=== PATIENT | male | born 1935 | race Caucasian/White ===

== ENCOUNTER 2021-06-22 19:00 | Emergency (ER) | payer BC, MEDICARE ==
[~2021-06-22] VITALS: Ht 170.2 cm; Wt 67.2 kg
--- NOTE | 2021-06-22 19:26 | PHYS DOC ---
Past History Past Surgical History: Other Additional Past Surgical Histo: kidney removal right General Adult EDM: Chief Complaint: ABDOMINAL PAIN HPI: HPI: Patient is a 86-year-old male coming in for left inguinal hernia that he cannot get reduced. Patient states he has had the hernia repaired about 5 years ago and that has since reopened. He states normally can reduce it and it soft. Patient states he been working and doing some lifting but also vomited once this morning. Last bowel movement was this morning but he states he is recently also been constipated. Patient is a history of diabetes, denies any hypertension, h eart disease, or blood thinner use. Review of Systems: Review of Systems: All other systems within normal limits except for as noted in the HPI Allergies: Allergies: Allergies Coded Allergies Type Severity Reaction Last Updated Verified penicillin G Allergy Unknown 09/30/15 Yes Physical Exam: PE: Constitutional: Well developed, well nourished, no acute distress, non-toxic appearance. [] HENT: Normocephalic, atraumatic, bilateral external ears normal, nose normal. [] Eyes: PERRLA, conjunctiva normal, no discharge. [] Neck: No rigidity, supple, no stridor. [] Cardiovascular: Regular rate and rhythm, brisk cap refill [] Lungs & Thorax: Non labored symmetric respirations, no tachypnea or respiratory distress [] Abdomen: Soft, nondistended, firm left inguinal hernia. Skin: Warm, dry, no erythema, no rash. [] Back: Unremarkable Extremities: No deformities, range of motion grossly intact, no lower extremity edema [] Neurologic: Alert and oriented X 3, no focal deficits noted. [] Psychologic: Affect normal, judgement normal, mood normal. [] Current Patient Data: Vital Signs: Vital Signs Date Time Temp Pulse Resp B/P (MAP) Pulse Ox O2 Delivery O2 Flow Rate FiO2 06/22/21 19:03 66 19 100 Room Air EKG: EKG: [] Radiology/Procedures: Radiology/Procedures: [address] [address] IMAGING REPORT Signed PATIENT: HOLLY EVANS ACCOUNT: [id number] : 1935 LOCATION: ER AGE: 86 SEX: M EXAM STATUS: REG ER ORD. PHYSICIAN: CASTILLO CHRISTY MD REASON: OMNI 300,75ML IV. Lt inguinal hernia PROCEDURE: CT ABD PELV W/ IV CONTRST ONLY CT OF THE ABDOMEN AND PELVIS WITH IV CONTRAST. History: Reason: OMNI 300,75ML IV. Lt inguinal hernia / Spl. Instructions: / History: Comparison:September 30, 2015. Procedure: Contiguous axial images of the abdomen and pelvis were performed after the administration of 75 cc of Omnipaque 300 IV contrast. Oral contrast: No. Findings: There is a moderate hiatal hernia. There is a small stone in the gallbladder but no wall thickening or surrounding fluid. The appendix is normal. There is a left inguinal canal hernia to multiple loops of small bowel and is multiple dilated loops of small bowel but does appear to be a few transition points including at the inguinal canal on the left. There is also mild twisting of the mesentery. There is some air and stool in the small bowel i.e. a small bowel feces sign. Liver: Unremarkable Spleen: Unremarkable Pancreas: Unremarkable Adrenal Glands: Unremarkable Kidneys: Prior right nephrectomy There is no mass or lymphadenopathy. There is no free air. There is no free fluid. The urinary bladder appears normal. Impression: 1. High-grade small bowel obstruction likely due to the small bowel-containing inguinal canal hernia on the left. 2. Twisting of the mesentery but 180 degrees was not present previously suggest possible internal hernia with small bowel volvulus. End Impression PQRS Compliance Statement: One or more of the following individualized dose reduction techniques were utilized for this examination: 1. Automated exposure control 2. Adjustment of the mA and/or kV according to patient size 3. Use of iterative reconstruction technique Electronically signed by: Delvin Harmon III, MD (06/22/2021 8:37 PM) [facility] DICTATED AND SIGNED BY: DELVIN HARMON III, MD DATE: 06/22/212028 CC: CASTILLO CHRISTY MD; KATERINA KEY MD ~ [] Heart Score: C/O Chest Pain: No Risk Factors: Risk Factors: DM, Current or recent (<one month) smoker, HTN, HLP, family history of CAD, obesity. Risk Scores: Score 0 - 3: 2.5% MACE over next 6 weeks - Discharge Home Score 4 - 6: 20.3% MACE over next 6 weeks - Admit for Clinical Observation Score 7 - 10: 72.7% MACE over next 6 weeks - Early Invasive Strategies Course & Med Decision Making: Course & Med Decision Making Pertinent Labs and Imaging studies reviewed. (See chart for details) Patient will need to be emergently transferred to [facility] for surgery for the hernia. Discussed with Dr. Fofana who will take patient to the OR. Accepted by Dr. Mendez [] Xin Disclaimer: Xin Disclaimer: This electronic medical record was generated, in whole or in part, using a voice recognition dictation system. Departure Departure: Impression: Primary Impression: Strangulated inguinal hernia Additional Impression: Small bowel obstruction Disposition: 02 SHORT TERM HOSPITAL Condition: GUARDED CASTILLO CHRISTY MD Jun 22, 2021 19:26
[2021-06-22] MEDS ORDERED: MORPHINE SULFATE 4 MG/ML DISP.SYRIN. IV ONE ×2 (19:30→21:45)
[2021-06-22] MEDS ORDERED: ONDANSETRON PF 4 MG/2 ML VIAL. IVP ONE (19:30)
[2021-06-22 19:35] LABS: BASO % 0 % (0-3); EOS % 0 % (0-3); HEMATOCRIT 42.6 % (39.0-53.0); HEMOGLOBIN 14.4 g/dL (13.0-17.5); LYMPH # 0.5 x10^3/uL (1.0-4.8); LYMPH % 5 % (24-48); MEAN CORPUSCULAR HEMOGLOBIN 33 pg (25-35); MEAN CORPUSCULAR HGB CONC 34 g/dL (31-37); MEAN CORPUSCULAR VOLUME 98 fL (79-100); MONO # 0.5 x10^3/uL (0.0-1.1); MONO % 4 % (0-9); NEUT # 9.9 x10^3uL (1.8-7.7); NEUT % 90 % (31-73); PLATELET COUNT 187 x10^3/uL (140-400); RED BLOOD COUNT 4.34 x10^6/uL (4.30-5.70); RED CELL DISTRIBUTION WIDTH 13.3 % (11.5-14.5)
[2021-06-22 19:36] LABS: CALCIUM 8.9 mg/dL (8.5-10.1); CREATININE 0.9 mg/dL (0.7-1.3); GFR 80.4
[2021-06-22 19:41] LABS: ALBUMIN 3.8 g/dL (3.4-5.0); ALBUMIN/GLOBULIN RATIO 1.2 (1.0-1.7); TOTAL BILIRUBIN 0.6 mg/dL (0.2-1.0); TOTAL PROTEIN 6.9 g/dL (6.4-8.2)
[2021-06-22] MEDS ORDERED: IOHEXOL 300 MG/ML 75 ML VIAL. IV ONE (19:45)
[2021-06-22 20:23] LABS: BACTERIA,URINE 0 /HPF (0-FEW); CLARITY,URINE CLEAR; COLOR,URINE YELLOW; GLUCOSE,URINE 500 mg/dL (NEG); NITRITE,URINE NEG (NEG); RBC,URINE 0 /HPF (0-2); UROBILINOGEN,URINE 0.2 mg/dL (0.2 mg/dL); WBC,URINE 0 /HPF (0-4)
--- NOTE | 2021-06-22 20:39 | RAD ---
CT OF THE ABDOMEN AND PELVIS WITH IV CONTRAST. History: Reason: OMNI 300,75ML IV. Lt inguinal hernia / Spl. Instructions: / History: Comparison:September 30, 2015. Procedure: Contiguous axial images of the abdomen and pelvis were performed after the administration of 75 cc o f Omnipaque 300 IV contrast. Oral contrast: No. Findings: There is a moderate hiatal hernia. There is a small stone in the gallbladder but no wall thickening or surrounding fluid. The appendix i s normal. There is a left inguinal canal hernia to multiple loops of small bowel and is multiple dilated loops of small bowel but does appear to be a few transition points including at the inguinal canal on the l eft. There is also mild twisting of the mesentery. There is some air and stool in the small bowel i.e . a small bowel feces sign. Liver: Unremarkable Spleen: Unremarkable Pancreas: Unremarkable Adrenal Glands: Unremarkable Kidneys: Prior right nephrectomy There is no mass or lymphadenopathy. There is no free air. There is no free fluid. The urinary bladder appears normal. Impression: 1. High-grade small bowel obstruction likely due to the small bowel-containing inguinal canal hernia on the left. 2. Twisting of the mesentery but 180 degrees was not present previously suggest possible internal her [place] with small bowel volvulus. End Impression PQRS Compliance Statement: One or more of the following individualized dose reduction techniques were utilized for this examinat ion: 1. Automated exposure control 2. Adjustment of the mA and/or kV according to patient size 3. Use of iterative reconstruction technique Electronically signed by: Boris Martniez III, MD (06/22/2021 8:37 PM) [facility]
[2021-06-22] MEDS ORDERED: PIPERACILLIN/TAZOBACTAM 3.375 GM in IV NORMAL SALINE 50ML 50 ML IV ONE (21:00)
[2021-06-22] MEDS ORDERED: PIPERACILLIN/TAZOBACTAM 3.375 GM VIAL IV ONE (21:01)
[2021-06-22 21:58] LABS: INFLUENZA A PATIENT NEGATIVE (NEGATIVE); INFLUENZA B PATIENT NEGATIVE (NEGATIVE)
[2021-06-22 22:35] VITALS: BP 146/78
== END 2021-06-22 22:45 | disposition short-term general hospital (02) ==
LOC: ER 19:00
DX: K40.30 Unilateral inguinal hernia, with obstruction, without gangrene, not specified as recurrent (principal); K56.609 Unspecified intestinal obstruction, unspecified as to partial versus complete obstruction; E11.9 Type 2 diabetes mellitus without complications; Z20.822 Contact with and (suspected) exposure to COVID-19; Z88.0 Allergy status to penicillin
CPT/HCPCS: 36415; 74177; 80053; 81001; 83605; 85025; 87428; 96365; 96375; 96376; 99285; J2270; J2405; J2543; Q9967; U0003